=== PATIENT | female | born 1965 | race Two or more races ===

== ENCOUNTER 2024-06-14 11:28 | Outpatient (CLI) | payer OTHER ==
[~2024-06-14 11:28] MED LIST: ATENOLOL25 MG; CIPRO500 MG PO; LEVSINEX0.375 M1 PO; SYNTHROID75 MCG
== END 2024-06-14 11:33 | disposition home or self-care (01) ==
LOC: NUCLEAR 11:28
PROVIDERS: ATTEND Psychiatry & Neurology Neurology
DX: G30.9 Alzheimer's disease, unspecified (principal)